=== PATIENT | male | born 1970 ===

== ENCOUNTER 2018-09-18 09:35 | Observation (INO) | payer OTHER ==
--- NOTE | 2018-09-18 10:17 | C.PDOC ---
History Of Present Illness 48 y/o M p/w rectal pain x 4 days. Reports bleeding and pain with bowel movements. Not able to sit or lie down prone due to pain. Denies fever, chills, chest pain, dyspnea. PMD H Quan Time Seen by Provider: 09/18/18 10:03 Chief Complaint (Nursing): GI Problem Past Medical History Vital Signs: Last Vital Signs Temp Pulse 138 H 09/18/18 09:44 Resp 18 09/18/18 09:44 BP 141/103 H 09/18/18 09:44 Pulse Ox 99 09/18/18 09:44 - Medical History PMH: Hypercholesterolemia Family History: States: No Known Family Hx - Social History Hx Alcohol Use: Yes Hx Substance Use: No - Immunization History Hx Tetanus Toxoid Vaccination: No Hx Influenza Vaccination: No Hx Pneumococcal Vaccination: No Review Of Systems Except As Marked, All Systems Reviewed And Found Negative. Constitutional: Negative for: Fever Cardiovascular: Negative for: Chest Pain Physical Exam - Physical Exam Additional Physical Exam Comments: Constitutional: No acute distress. Head: Normocephalic. Atraumatic. Eyes: PERRL. ENT: Moist mucous membranes. Neck: Supple. Cardiovascular: Tachycardic. Radial pulse 2+ bilaterally. Chest: No tenderness. Respiratory: Clear to auscultation bilaterally. GI: Soft. Nontender. Nondistended. Rectal: Multiple external hemorrhoids, thrombosed, tender. Back: No CVA tenderness. Musculoskeletal: No tenderness or swelling of extremities. Skin: No rash. Neurologic: Alert, no focal deficit. ED Course And Treatment - Laboratory Results Result Diagrams: 09/18/18 11:10 09/18/18 11:10 O2 Sat by Pulse Oximetry: 99 Medical Decision Making Medical Decision Making: Surgery called. Last meal dinner yesterday approximately 7pm. Dr. Gordon states will take patient to OR. Dr. Nelson accepts patient to hospitalist service. Disposition - Disposition Disposition: HOSPITALIZED Disposition Time: 11:30 Condition: STABLE Forms: [facility] (Slovenian) - Clinical Impression Clinical Impression: Thrombosed external hemorrhoids
[2018-09-18 11:16] LABS: BASO % 0.5 % (0.0-2.0); EOS # 0.1 K/uL (0.0-0.7); EOS % 1.8 % (0.0-4.0); HEMOGLOBIN 15.2 g/dL (12.0-18.0); LYMPH # 1.6 K/uL (1.0-4.3); LYMPH % 23.9 % (20.0-40.0); MEAN CELL VOLUME 95.6 fL (80.0-94.0); MEAN CORPUSCULAR HEMOGLOBIN 32.3 pg (27.0-31.0); MEAN CORPUSCULAR HGB CONC 33.8 g/dL (33.0-37.0); MEAN PLATELET VOLUME 9.3 fL (7.2-11.7); MONO # 0.8 K/uL (0.0-0.8); MONO % 12.5 % (0.0-10.0); NEUT # 4.1 K/uL (1.8-7.0); NEUT % 61.3 % (50.0-75.0); NRBC % 0.2 % (0.0-2.0); RBC 4.71 Mil/uL (4.40-5.90); RED CELL DISTRIBUTION WIDTH 13.4 % (11.5-14.5); WHITE BLOOD COUNT 6.6 K/uL (4.8-10.8)
[2018-09-18 11:26] LABS: PROTHROMBIN TIME 11.4 SECONDS (9.7-12.2)
[2018-09-18 11:27] LABS: ALB/GLOB RATIO 1.5 (1.0-2.1); ALBUMIN 5.2 g/dL (3.5-5.0); ALT/SGPT 37 U/L (21-72); AST/SGOT 60 U/L (17-59); BLOOD UREA NITROGEN 13 mg/dL (9-20); CALCIUM 9.9 mg/dl (8.6-10.4); GFR NON-AFRICAN AMERICAN > 60
[2018-09-18] MEDS ORDERED: Midazolam 2 MG/2 ML VIAL ONE (12:56)
[2018-09-18] MEDS ORDERED: Propofol 10 mg/ml Inj (20 ML) ONE (12:56)
[2018-09-18] MEDS ORDERED: Lidocaine Hydrochloride 5 ML INJ ONE (12:57)
--- NOTE | 2018-09-18 13:14 | CP.PCM.HP ---
History of Present Illness - History of Present Illness History of Present Illness: PGY-1 History and Physical for Dr. Nelson Patient is a 48 year old male with past medical history of HLD presenting with rectal pain, 10/10 in severity at its worst, and bloody BM for the past 4 days. Patient states he has not been able to sit down due to pain. No fevers/chills, headaches, dizziness, chest pain, palpitations, sob, cough, abdominal pain, n/v/d/c. Patient was evaluated by General Surgery (Dr. Gordon), found to have extensive thrombosed external hemorrhoids requiring surgery. Patient made aware and scheduled for OR today. PMHx: HLD PSHx: Denies Allergies: NKDA Home Meds: as per chart Social Hx: Social drinker, <1ppd smoker some days, denies illicit drug use Family Hx: unknown PMD: Dr. Saúl Glass Present on Admission - Present on Admission Any Indicators Present on Admission: No Review of Systems - Review of Systems All systems: reviewed and no additional remarkable complaints except Review of Systems: as per HPI Past Patient History - Past Social History Smoking Status: Current Some Days Smoker - CARDIAC Hx Hypercholesterolemia: Yes - PSYCHIATRIC Hx Substance Use: No - SURGICAL HISTORY Hx Surgeries: No - ANESTHESIA Hx Anesthesia: No Meds Allergies/Adverse Reactions: Allergies Allergy/AdvReac Type Severity Reaction Status Date / Time No Known Allergies Allergy Verified 09/18/18 09:48 Physical Exam - Constitutional Appears: Non-toxic, No Acute Distress - Head Exam Head Exam: ATRAUMATIC, NORMAL INSPECTION, NORMOCEPHALIC - Eye Exam Eye Exam: EOMI, Normal appearance, PERRL Pupil Exam: NORMAL ACCOMODATION - ENT Exam ENT Exam: Mucous Membranes Moist, Normal Exam - Neck Exam Neck exam: Positive for: Full Rom, Normal Inspection. Negative for: Tenderness - Respiratory Exam Respiratory Exam: Clear to Auscultation Bilateral, NORMAL BREATHING PATTERN. absent: Accessory Muscle Use, Rales, Rhonchi, Wheezes, Respiratory Distress, Stridor - Cardiovascular Exam Cardiovascular Exam: REGULAR RHYTHM, +S1, +S2 - GI/Abdominal Exam GI & Abdominal Exam: Normal Bowel Sounds, Soft. absent: Distended, Firm, Guarding, Rebound, Rigid, Tenderness - Extremities Exam Extremities exam: Positive for: normal capillary refill, normal inspection, pedal pulses present. Negative for: calf tenderness, pedal edema - Back Exam Back exam: NORMAL INSPECTION - Neurological Exam Neurological exam: Alert, CN II-XII Intact, Oriented x3 - Psychiatric Exam Psychiatric exam: Normal Affect, Normal Mood - Skin Skin Exam: Dry, Intact, Normal Color, Warm Results - Vital Signs Recent Vital Signs: Last Vital Signs Temp Pulse 93 H 09/18/18 12:44 Resp 18 09/18/18 12:44 BP 146/95 H 09/18/18 12:44 Pulse Ox 99 09/18/18 12:44 - Labs Result Diagrams: 09/18/18 11:10 09/18/18 11:10 Labs: Laboratory Results - last 24 hr 09/18/18 09/18/18 09/18/18 11:10 11:10 11:10 WBC 6.6 RBC 4.71 Hgb 15.2 Hct 45.0 MCV 95.6 H MCH 32.3 H MCHC 33.8 RDW 13.4 Plt Count 160 MPV 9.3 Neut % (Auto) 61.3 Lymph % (Auto) 23.9 [place] % (Auto) 12.5 H Eos % (Auto) 1.8 Baso % (Auto) 0.5 Neut # (Auto) 4.1 Lymph # (Auto) 1.6 [place] # (Auto) 0.8 Eos # (Auto) 0.1 Baso # (Auto) 0.0 PT 11.4 INR 1.0 APTT 33 Sodium 140 Potassium 4.4 Chloride 101 Carbon Dioxide 29 Anion Gap 14 BUN 13 Creatinine 0.9 Est GFR ( Amer) > 60 Est GFR (Non-Af Amer) > 60 Random Glucose 99 Calcium 9.9 Total Bilirubin 0.9 AST 60 H ALT 37 Alkaline Phosphatase 109 Total Protein 8.7 H Albumin 5.2 H Globulin 3.5 Albumin/Globulin Ratio 1.5 Blood Type Antibody Screen 09/18/18 11:10 WBC RBC Hgb Hct MCV MCH MCHC RDW Plt Count MPV Neut % (Auto) Lymph % (Auto) [place] % (Auto) Eos % (Auto) Baso % (Auto) Neut # (Auto) Lymph # (Auto) [place] # (Auto) Eos # (Auto) Baso # (Auto) PT INR APTT Sodium Potassium Chloride Carbon Dioxide Anion Gap BUN Creatinine Est GFR ( Amer) Est GFR (Non-Af Amer) Random Glucose Calcium Total Bilirubin AST ALT Alkaline Phosphatase Total Protein Albumin Globulin Albumin/Globulin Ratio Blood Type O POSITIVE Antibody Screen Negative Assessment & Plan - Assessment and Plan (Free Text) Assessment: 48 year old male with PMHx of HLD presenting to ED from PMD office for severe rectal pain with associated bloody BM x 4 days. Found to have external hemorrhoids requiring surgery, evaluated by Dr. Gordon. Set for OR today. Plan: Thrombosed external hemorrhoids -General surgery (Dr. Gordon) on case -coags wnl -scheduled for OR today HTN -141/103 on admission -not on any home meds -continue to monitor HLD -f/u lipid panel PPx, Diet, Disposition -DVT ppx: -GI ppx: not indicated -Diet: NPO for OR today, HHD afterwards Case discussed with Dr. Leslie Sandoval DO, PGY-1
[2018-09-18] MEDS ORDERED: Sodium Chloride 0.9% 0 ML IV ONE (13:19)
[2018-09-18] MEDS ORDERED: Bupivacaine-Epi 0.5%-1:200,000 PF Inj ONE (13:20)
[2018-09-18] MEDS ORDERED: ceFAZolin 1 gm in NS 1 GM/100 ML BAG IVPB ONE (13:31)
[2018-09-18] MEDS ORDERED: Absorbable Gelatin Sponge Size 100 ONE (13:48)
[2018-09-18] MEDS ORDERED: Lactated Ringer's 1,000 ML IV ONE (14:17)
[2018-09-18] MEDS ORDERED: HYDROmorphone 0.5 mg/0.5 ml ISec IVP PRN (14:37)
--- NOTE | 2018-09-18 14:46 | CP.PCM.CON ---
<JaimeNagi - Last Filed: 09/18/18 14:42> History of Present Illness - History of Present Illness History of Present Illness: PGY-[address] Nelson Reason for consult: medical management Patient is a 48 year old male with past medical history of HLD presenti ng with rectal pain, 10/10 in severity at its worst, and bloody BM for the past 4 days. Patient states he has not been able to sit down due to pain. No fevers/chills, headaches, dizziness, chest pain, palpitations, sob, cough, abdominal pain, n/v/d/c. Patient was evaluated by General Surgery (Dr. Jamie hogan), found to have extensive thrombosed external hemorrhoids requiring surgery. Patient made aware and scheduled for OR today. PMHx: HLD PSHx: none Allergies: NKDA Home Meds: as per chart Social Hx: Social drinker, <1ppd smoker some days, denies illicit drug use Family Hx: unknown PMD: Dr. Saúl Glass Review of Systems - Review of Systems All systems: reviewed and no additional remarkable complaints except Review of Systems: as per HPI Past Patient History - Past Social History Smoking Status: Current Some Days Smoker - CARDIAC Hx Hypercholesterolemia: Yes - PSYCHIATRIC Hx Substance Use: No - SURGICAL HISTORY Hx Surgeries: No - ANESTHESIA Hx Anesthesia: No Meds Allergies/Adverse Reactions: Allergies Allergy/AdvReac Type Severity Reaction Status Date / Time No Known Allergies Allergy Verified 09/18/18 09:48 - Medications Medications: Current Medications Docusate Sodium (Colace) 100 mg PO BID ANGELA Oxycodone/Acetaminophen (Percocet 5/325 Mg Tab) 2 tab PO Q4H PRN PRN Reason: pain Stop: 09/21/18 14:15 Physical Exam - Constitutional Appears: Non-toxic, No Acute Distress - Head Exam Head Exam: ATRAUMATIC, NORMAL INSPECTION, NORMOCEPHALIC - Eye Exam Eye Exam: EOMI, Normal appearance Pupil Exam: NORMAL ACCOMODATION - ENT Exam ENT Exam: Mucous Membranes Moist, Normal Exam - Neck Exam Neck exam: Positive for: Full Rom, Normal Inspection - Respiratory Exam Respiratory Exam: Clear to Auscultation Bilateral, NORMAL BREATHING PATTERN. absent: Accessory Muscle Use, Rales, Rhonchi, Wheezes, Respiratory Distress, Stridor - Cardiovascular Exam Cardiovascular Exam: Tachycardia, +S1, +S2 - GI/Abdominal Exam GI & Abdominal Exam: Normal Bowel Sounds, Soft. absent: Distended, Firm, Guarding, Rebound, Rigid - Extremities Exam Extremities exam: Positive for: normal capillary refill, normal inspection, pedal pulses present. Negative for: calf tenderness, pedal edema - Back Exam Back exam: NORMAL INSPECTION - Neurological Exam Neurological exam: Alert, CN II-XII Intact, Oriented x3 - Psychiatric Exam Psychiatric exam: Normal Affect, Normal Mood - Skin Skin Exam: Dry, Intact, Normal Color, Warm Results - Vital Signs Recent Vital Signs: Last Vital Signs Temp Pulse 93 H 09/18/18 12:44 Resp 18 09/18/18 12:44 BP 146/95 H 09/18/18 12:44 Pulse Ox 99 09/18/18 12:44 - Labs Result Diagrams: 09/18/18 11:10 09/18/18 11:10 Labs: Laboratory Results - last 24 hr 09/18/18 09/18/18 09/18/18 11:10 11:10 11:10 WBC 6.6 RBC 4.71 Hgb 15.2 Hct 45.0 MCV 95.6 H MCH 32.3 H MCHC 33.8 RDW 13.4 Plt Count 160 MPV 9.3 Neut % (Auto) 61.3 Lymph % (Auto) 23.9 [place] % (Auto) 12.5 H Eos % (Auto) 1.8 Baso % (Auto) 0.5 Neut # (Auto) 4.1 Lymph # (Auto) 1.6 [place] # (Auto) 0.8 Eos # (Auto) 0.1 Baso # (Auto) 0.0 PT 11.4 INR 1.0 APTT 33 Sodium 140 Potassium 4.4 Chloride 101 Carbon Dioxide 29 Anion Gap 14 BUN 13 Creatinine 0.9 Est GFR ( Amer) > 60 Est GFR (Non-Af Amer) > 60 Random Glucose 99 Calcium 9.9 Total Bilirubin 0.9 AST 60 H ALT 37 Alkaline Phosphatase 109 Total Protein 8.7 H Albumin 5.2 H Globulin 3.5 Albumin/Globulin Ratio 1.5 Blood Type Antibody Screen 09/18/18 11:10 WBC RBC Hgb Hct MCV MCH MCHC RDW Plt Count MPV Neut % (Auto) Lymph % (Auto) [place] % (Auto) Eos % (Auto) Baso % (Auto) Neut # (Auto) Lymph # (Auto) [place] # (Auto) Eos # (Auto) Baso # (Auto) PT INR APTT Sodium Potassium Chloride Carbon Dioxide Anion Gap BUN Creatinine Est GFR ( Amer) Est GFR (Non-Af Amer) Random Glucose Calcium Total Bilirubin AST ALT Alkaline Phosphatase Total Protein Albumin Globulin Albumin/Globulin Ratio Blood Type O POSITIVE Antibody Screen Negative Assessment & Plan - Assessment and Plan (Free Text) Assessment: 48 year old male with PMHx of HLD presenting to ED from PMD office for severe rectal pain with associated bloody BM x 4 days. Found to have external hemorrhoids requiring surgery, evaluated by Dr. Gordon. Set for OR today. Plan: Thrombosed external hemorrhoids -General surgery (Dr. Gordon) on case -coags wnl -scheduled for OR today HTN -141/103 on admission -not on any home meds -continue to monitor HLD -f/u lipid panel PPx, Diet, Disposition -DVT ppx: scds, heparin -GI ppx: not indicated -Diet: NPO for OR today, HHD afterwards Case discussed with Dr. Leslie Sandoval DO, PGY-1 <Sage Nelson - Last Filed: 09/18/18 17:52> Meds - Medications Medications: Current Medications Docusate Sodium (Colace) 100 mg PO BID [facility] Last Admin: 09/18/18 17:39 Dose: Not Given Heparin Sodium (Porcine) (Heparin) 5,000 units SC Q8 ANGELA Lactated Ringer's (Lactated Ringer's) 1,000 mls @ 100 mls/hr IV .Q10H [facility] Last Admin: 09/18/18 17:39 Dose: 100 mls/hr Oxycodone/Acetaminophen (Percocet 5/325 Mg Tab) 2 tab PO Q4H PRN PRN Reason: pain Stop: 09/21/18 14:15 Results - Vital Signs Recent Vital Signs: Last Vital Signs Temp 97.7 F 09/18/18 15:52 Pulse 77 09/18/18 15:52 Resp 20 09/18/18 15:52 BP 136/89 09/18/18 15:52 Pulse Ox 97 09/18/18 15:52 - Labs Result Diagrams: 09/18/18 11:10 09/18/18 11:10 Labs: Laboratory Results - last 24 hr 09/18/18 09/18/18 09/18/18 11:10 11:10 11:10 WBC 6.6 RBC 4.71 Hgb 15.2 Hct 45.0 MCV 95.6 H MCH 32.3 H MCHC 33.8 RDW 13.4 Plt Count 160 MPV 9.3 Neut % (Auto) 61.3 Lymph % (Auto) 23.9 [place] % (Auto) 12.5 H Eos % (Auto) 1.8 Baso % (Auto) 0.5 Neut # (Auto) 4.1 Lymph # (Auto) 1.6 [place] # (Auto) 0.8 Eos # (Auto) 0.1 Baso # (Auto) 0.0 PT 11.4 INR 1.0 APTT 33 Sodium 140 Potassium 4.4 Chloride 101 Carbon Dioxide 29 Anion Gap 14 BUN 13 Creatinine 0.9 Est GFR ( Amer) > 60 Est GFR (Non-Af Amer) > 60 Random Glucose 99 Calcium 9.9 Total Bilirubin 0.9 AST 60 H ALT 37 Alkaline Phosphatase 109 Total Protein 8.7 H Albumin 5.2 H Globulin 3.5 Albumin/Globulin Ratio 1.5 Blood Type Antibody Screen 09/18/18 11:10 WBC RBC Hgb Hct MCV MCH MCHC RDW Plt Count MPV Neut % (Auto) Lymph % (Auto) [place] % (Auto) Eos % (Auto) Baso % (Auto) Neut # (Auto) Lymph # (Auto) [place] # (Auto) Eos # (Auto) Baso # (Auto) PT INR APTT Sodium Potassium Chloride Carbon Dioxide Anion Gap BUN Creatinine Est GFR ( Amer) Est GFR (Non-Af Amer) Random Glucose Calcium Total Bilirubin AST ALT Alkaline Phosphatase Total Protein Albumin Globulin Albumin/Globulin Ratio Blood Type O POSITIVE Antibody Screen Negative Attending/Attestation - Attestation I have personally seen and examined this patient.: Yes I have fully participated in the care of the patient.: Yes I have reviewed all pertinent clinical information: Yes Notes (Text): seen and examined by me . Feels better after surgery s/p Hemorroidectomy we will follow sugery recommendation patient has no significant medical problem
[2018-09-18 16:54] VITALS: RESP 20
[2018-09-18] MEDS: Lactated Ringer's 1,000 ML IV SCH (17:39)
[2018-09-18] MEDS: Oxycodone/Acetaminophen 5/325 mg Tab PO PRN (20:42)
--- NOTE | 2018-09-19 00:15 | OP ---
PROCEDURE DATE: 09/18/2018 PREOPERATIVE DIAGNOSIS: Thrombosed hemorrhoid. POSTOPERATIVE DIAGNOSIS: Thrombosed hemorrhoid. PROCEDURE PERFORMED: Proctosigmoidoscopy, hemorrhoidectomy. SURGEON: Faustino Gordon MD ANESTHESIA: General. BLOOD LOSS: 30 mL. POSTOPERATIVE CONDITION: Stable. INDICATIONS FOR SURGERY: This is a 48-year-old male who presented to the ER with severe pain, thrombosed hemorrhoids which were prolapsed, taken to the operating room now for urgent removal. DESCRIPTION OF PROCEDURE: The patient was taken to the operating room. General anesthesia administered. He was placed in the prone position with the buttocks taped open. The rectal area was prepped and draped. There was a large left lateral hemorrhoid. It was a large left lateral thrombosed and prolapsed mixed internal-external hemorrhoid. This was grasped with 2 dante clamps and a heavy Monocryl stitch was placed at the base. An elliptical incision was made with a #10 blade out onto the anal skin, and the hemorrhoid bundle was completely excised. Bleeding was controlled using the Bovie. Tissue flap closure was performed by mobilizing and then using 2 layers of running heavy Monocryl suture. A small internal hemorrhoid in the right anterior position was also removed in a similar fashion. At the conclusion of procedure, the wound was hemostatic. The patient tolerated the procedure well and returned to recovery room in stable condition. Faustino Gordon MD
[2018-09-19] MEDS: Oxycodone/Acetaminophen 5/325 mg Tab PO PRN ×2 (02:19→06:10)
[2018-09-19] MEDS: Lactated Ringer's 1,000 ML IV SCH (06:14)
[2018-09-19 07:05] LABS: BASO % 0.4 % (0.0-2.0); EOS # 0.2 K/uL (0.0-0.7); HEMOGLOBIN 13.9 g/dL (12.0-18.0); LYMPH # 1.4 K/uL (1.0-4.3); LYMPH % 18.4 % (20.0-40.0); MEAN CELL VOLUME 95.8 fL (80.0-94.0); MEAN CORPUSCULAR HEMOGLOBIN 32.4 pg (27.0-31.0); MEAN CORPUSCULAR HGB CONC 33.8 g/dL (33.0-37.0); MEAN PLATELET VOLUME 9.9 fL (7.2-11.7); MONO # 0.7 K/uL (0.0-0.8); NEUT # 5.3 K/uL (1.8-7.0); NEUT % 70.2 % (50.0-75.0); RBC 4.29 Mil/uL (4.40-5.90); WHITE BLOOD COUNT 7.5 K/uL (4.8-10.8)
[2018-09-19 07:37] LABS: ALB/GLOB RATIO 1.5 (1.0-2.1); ALBUMIN 4.3 g/dL (3.5-5.0); ALT/SGPT 28 U/L (21-72); AST/SGOT 53 U/L (17-59); BLOOD UREA NITROGEN 12 mg/dL (9-20); GFR NON-AFRICAN AMERICAN > 60; HDL CHOLESTEROL 77 mg/dL (30-70)
[2018-09-19 07:38] LABS: LDL CHOLESTEROL 119 mg/dL (0-129)
[2018-09-19 07:54] VITALS: BP 153/96; PULSE 105; TEMP 98.3; O2SAT 95
[2018-09-19] MEDS ORDERED: Pneumococcal 23-Valent Vaccine IM ONE (10:26)
--- NOTE | 2018-09-19 21:59 | CARD ---
APPROVED REPORT Date of service: 09/18/2018 EKG Measurement Heart [id number] ID [id number] <Conclusion> Sinus tachycardia Right atrial enlargement Borderline ECG
== END 2018-09-19 08:36 | disposition home or self-care (01) ==
LOC: C.ER 09:35 → C.9E 12:01 → C.6T 12:50
PROVIDERS: ADMIT Surgery; ATTEND Surgery
DX: K64.5 Perianal venous thrombosis (principal); K64.8 Other hemorrhoids; E78.00 Pure hypercholesterolemia, unspecified; F17.210 Nicotine dependence, cigarettes, uncomplicated
CPT/HCPCS: 36415; 46255; 80053; 80061; 83036; 83735; 84100; 85025; 85610; 85730; 86850; 86900; 88304; 93005; 99285; G0378; J0690; J1644; J2250; J2704; J3010; J7120